=== PATIENT | male | born 1935 | race Caucasian/White ===

== ENCOUNTER → 2021-04-17 | Outpatient (CLI) | payer MEDICARE, OTHER ==
[~2021-04-17] MED LIST: ASPIRIN EC81 M1 PO; ATORVASTATIN CA40 MG PO; CARVEDILOL12.5 MG PO; DIOVAN 80 MG TA80 M1 PO; DIOVAN PO; DIOVAN320 MG PO; LEVAQUIN 500 M500 M2 PO; NITROSTAT0.4 MG SUBLING; PLAVIX 75 MG TA75 M1 PO; TOPROL XL50 MG PO; VITAMIN D400 UNI1 PO; ZOCOR 20 MG TAB20 M1 PO
[2021-04-17 10:27] LABS: CALCIUM 9.1 mg/dL (8.5-10.1); CREATININE 1.4 mg/dL (0.6-1.3)
== END ==
LOC: M.LAB 09:56
PROVIDERS: ATTEND Internal Medicine
DX: I50.43 Acute on chronic combined systolic (congestive) and diastolic (congestive) heart failure (principal)

== ENCOUNTER → 2021-05-27 | Outpatient (CLI) | payer MEDICARE, OTHER ==
[~2021-05-27] MED LIST changes: +COENZYME Q10100 M2 PO; +ENTRESTO 49 MG1 EACH PO; +LASIX 40 MG TAB40 MG PO; +NITROSTAT0.4 M1 SUBLING; +PROSCAR 5MG TABL5 M1 PO; +SUPER THERAVIT1 EACH PO; +vitamin D3 PO
--- NOTE | 2021-05-27 17:15 | CARDNUC ---
[place] [address] CARDIAC NUCLEAR IMAGING REPORT Name: DIAZVALENTE Room: [facility]#: [id number] Admission: 05/27/21 Attend Phys: Surya Hernandez, Discharge: Date of : 35 Date of Service: 05/27/21 1715 Report #: [id number] THIS REPORT FOR: cc: Gustavo Villagomez MD, Logan F. MD Biggs, F. Douglas MD [facility] ~ APPROVED REPORT Study performed: 05/27/2021 14:09:42 Exam: Nuclear Stress Test Indication: Dyspnea, CAD s/p NH, CAD s/p PCI. Patient Location: Out-Patient Stress Tech: AIXA Dubon Stress Nurse: Shannan Main R.N. NM Tech:AIXA Dubon Ht: 5 ft 8 in Wt: 193 lbs BSA: 2.01 m2 BMI: 29.34 Medical History Medical History: CAD s/p NH, CAD s/p stent, Dyspnea on exertion, CHF, ischemic cardiomyopathy, nonrheumatic aortic valve insufficiency, LE edema, bradycardia, HTN, HLD, FHX CAD, right orthopedic leg brace. Medications: ASA 81 mg, Atorvastatin, Carvedilol, Lasix, NTG, Entresto Allergies: Sulfa ABX Cardiac Risk Factors: Age, FHX of CAD, HTN, Hyperlipidemia, SOB, CHF, Ischemic cardiomyopathy, nonrheumatic aortic valve insufficiency, bradycardia. Previous Cardiac Procedures: Myocardial infarction, PCI. Pretest Chest Pain Characteristics: No chest pain Exercise History: Indeterminate Physical Disabilities: Leg brace Meds Held (24 hrs): Carvedilol, NTG. Stress Test Details Stress Test: Pharmacologic stress testing performed using 0.4 mg of regadenoson per 5 mL given IV over 10 seconds. Reason for pharmacologic stress test: Leg brace. HR Resting HR: 72 bpm Max Heart Rate (APMHR): 135 [place] [address] CARDIAC NUCLEAR IMAGING REPORT Name: VALENTE DIAZ Room: [facility]#: [id number] Admission: 05/27/21 Attend Phys: Surya Hernandez, Discharge: Date of : 35 Date of Service: 05/27/21 1715 Report #: [id number] Max HR Achieved: 118 bpm Target HR (85% APMHR): 114 bpm % of APMHR: 87 Recovery HR: 100 bpm HR response to stress: Normal HR response to stress BP Resting BP: 130/59 mmHg Max BP: 111/59 mmHg BP response to stress: Normal blood pressure response to stress. ECG Resting ECG: Sinus Rhythm with low voltage in the lateral chest leads Stress ECG: Sinus Rhythm and as above ST Change: None Arrhythmia: VPC's Recovery ECG: Sinus Rhythm with low voltage in the lateral chest leads Recovery ST Change: None Recovery Arrhythmia: VPCs Clinical Reason for Termination: Completed protocol Stress Symptoms: Dyspnea, lightheadedness. Exercise duration: 00 min 00 sec Exercise capacity: 1.00 METs Nurse Comments An 85 year old male tolerated a sitting Lexiscan. Patient was stable and stated he felt better when escorted to Nuclear Medicine for imaging. Stress ECG Conclusion Normal hemodynamic response to pharmacologic stress. Clinical: Non-ischemic Non-diagnostic pharmacologic EKG stress due to failure to attain target HR. NM EXAM: Myocardial Perfusion REST/STRESS Imaging Protocol: Rest Tc-99m/Stress Tc-99m 1 day Resting Data Rest SPECT myocardial perfusion imaging was performed in supine position 30 minutes following the intravenous injection of 9.8 mCi of Tc-99[place] [address] CARDIAC NUCLEAR IMAGING REPORT Name: VALENTE DIAZ Room: [facility]#: [id number] Admission: 05/27/21 Attend Phys: Surya Hernandez, Discharge: Date of : 35 Date of Service: 05/27/21 1715 Report #: [id number] Time of rest injection: 13:05 The images were gated to evaluate regional wall motion and calculate left ventricular ejection fraction. Administration Route: IV Administration Site: Right AC Pharmacologic Stress Pharmacologic stress test was performed by injecting Regadenoson 0.4 mg IV push followed by the intravenous injection of 32.0 mCi of Tc-99m Sestamibi. Time of stress injection: 14:25 Administration Route: IV Administration Site: Right AC Heart Rate at time of stress injection: 118 bpm. Gated Stress SPECT was performed 40 minutes after stress injection. The images were gated to evaluate regional wall motion and calculate left ventricular ejection fraction. Prone imaging was performed. Study Quality Study: Good Artifact: No artifact Lung Uptake: Normal Study Data At rest, the left ventricular ejection fraction was 46%.. Post stress, the left ventricular ejection was 51%.. SSS: 11 SRS: 9 SDS: 2 TID = 0.94. Perfusion The resting study demonstrated a small severe inferior defect near the base and a small severe lateral defect near the base. The post stress images also demonstrate a small severe inferior defect near the base and a small severe lateral defect near the base unchanged from that seen at rest. Prone image words were obtained and were unchanged from those seen at rest and unchanged from those seen on the stress images. There were no reversible defects seen. 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 Images were reviewed using [employer] [place] [address] CARDIAC NUCLEAR IMAGING REPORT Name: VALENTE DIAZ Room: [facility] Romie#: [id number] Admission: 05/27/21 Attend Phys: Surya Hernandez, Discharge: Date of : 35 Date of Service: 05/27/21 1715 Report #: [id number] There is mild hypokinesis seen both at rest and with stress in the inferior and lateral craig. Nuclear Conclusion ECG Findings: non-diagnostic Clinical Findings: negative for ischemia Nuclear Findings: negative for ischemia Exercise Capacity: not assessed Left Ventricular Function: ab abnormal, but only minimally so Risk Study: low The Lexiscan Cardiolite stress test demonstrates a moderate sized area of inferolateral prior infarct. There is no evidence of ischemia. <Conclusion> Normal hemodynamic response to pharmacologic stress. Clinical: Non-ischemic Non-diagnostic pharmacologic EKG stress due to failure to attain target HR. <ELECTRONICALLY SIGNED> By: Myah Powers MD, [facility] 05/27/215 14 14 Myah Powers MD, FACC /INF
== END ==
LOC: M.NUC 05-20 15:33
PROVIDERS: ATTEND Internal Medicine Cardiovascular Disease
DX: R06.00 Dyspnea, unspecified (principal)